=== PATIENT | female | born 1990 | race Two or more races ===

== ENCOUNTER 2019-01-16 14:44 | Outpatient (CLI) | payer BC ==
[2019-01-16] MEDS ORDERED: [UNRECOGNIZED DRUG - REMARK] PO (15:25)
[2019-01-16] MEDS ORDERED: OMEP-110 PO (15:25)
[2019-01-16] MEDS ORDERED: HYDR-3240 PO (15:25)
[2019-01-23] MEDS ORDERED: MIDAZOLAM 1 MG/ML, 2ML ONE ×2 (11:31)
[2019-01-23] MEDS ORDERED: FENTANYL PF 100 MCG/2ML ONE (11:43)
== END 2019-01-16 23:59 | disposition home or self-care (01) ==
LOC: STAR 14:44
PROVIDERS: ATTEND Surgery
DX: Z02.9 Encounter for administrative examinations, unspecified (principal)

== ENCOUNTER 2019-01-23 09:32 | Day surgery (SDC) | payer BC ==
[~2019-01-23] VITALS: Ht 165.1 cm; Wt 97.7 kg
[~2019-01-23 09:32] MED LIST: HYDR-3240 PO; OMEP-110 PO; [UNRECOGNIZED DRUG - REMARK] PO
[2019-01-23 09:55] VITALS: BP 120/80
[2019-01-23] MEDS ORDERED: MIDAZOLAM 1 MG/ML, 2ML IV PRN (10:00)
[2019-01-23] MEDS ORDERED: ONDANSETRON 2MG/ML, 2ML IVPush PRN (10:00)
[2019-01-23] MEDS ORDERED: LABETALOL 5MG/ML, 20ML IV PRN (10:00)
[2019-01-23] MEDS ORDERED: OXYcodone 5 MG/5 ML ORAL.SOL UDC PO PRN (10:00)
[2019-01-23] MEDS ORDERED: MEPERIDINE/PF 25MG/0.5ML IVPush PRN (10:00)
[2019-01-23] MEDS ORDERED: HYDROmorphone 1 MG/ML, 1ML IV PRN (10:00)
[2019-01-23 10:10] LABS: HCG UR SG 1.014 (1.003-1.030)
[2019-01-23] MEDS ORDERED: LACTATED RINGERS 1,000 ML IV SCH (10:12)
[2019-01-23] MEDS ORDERED: BUPIVACAINE/PF-EPI 0.5% 1:200K ONE (11:12)
[2019-01-23] MEDS ORDERED: NEOSTIGMINE 1 MG/ML, 10ML ONE (11:30)
[2019-01-23] MEDS ORDERED: FENTANYL PF 100 MCG/2ML ONE ×3 (11:30→12:54)
[2019-01-23] MEDS ORDERED: CEFAZOLIN 1,000 MG ONE (11:30)
[2019-01-23] MEDS ORDERED: ONDANSETRON 2MG/ML, 2ML ONE (11:30)
[2019-01-23] MEDS ORDERED: LIDOCAINE-MPF 2% ,5ML ONE (11:30)
[2019-01-23] MEDS ORDERED: PROPOFOL 10 MG/ML, 20ML ONE (11:30)
[2019-01-23] MEDS ORDERED: METOCLOPRAMIDE 5 MG/ML, 2ML ONE (11:30)
[2019-01-23] MEDS ORDERED: GLYCOPYRROLATE 0.2MG/1ML, 5ML ONE (11:30)
[2019-01-23] MEDS ORDERED: BUPIVACAINE/PF-EPI 0.5% 1:200K INFIL ONE (11:30)
[2019-01-23] MEDS ORDERED: MIDAZOLAM 1 MG/ML, 2ML ONE (11:30)
[2019-01-23] MEDS ORDERED: ROCURONIUM 10 MG/ML,10ML ONE (11:30)
[2019-01-23] MEDS ORDERED: DEXAMETHASONE 4 MG/ML, 5ML ONE (11:30)
[2019-01-23] MEDS ORDERED: OXYcodone 5 MG/5 ML ORAL.SOL UDC ONE (12:51)
[2019-01-23] MEDS: FENTANYL PF 100 MCG/2ML IV PRN ×2 (12:55→13:16)
== END 2019-01-23 18:10 | disposition home or self-care (01) ==
LOC: OUT 09:32
PROVIDERS: ATTEND Surgery
DX: K80.10 Calculus of gallbladder with chronic cholecystitis without obstruction (principal)
CPT/HCPCS: 47562; 81025; 88304; C1729; J0690; J1100; J2250; J2405; J2704; J2710; J2765; J3010; J3490; J7120